=== PATIENT | male | born 1960 | race Caucasian/White ===

== ENCOUNTER 2023-04-08 10:54 | Outpatient (OUT) | payer BC, SELFPAY ==
--- NOTE | 2023-04-08 11:09 | ECG_ITS ---
[facility] Test Date: 2023-04-08 Pat Name: ZOE ANDERSON Department: Room: - Gender: Male [employer] Operator: : 1960 Requested By: MARY BETH COLLINS Order Number: [id number] Reading MD: MISSAEL ELIZALDE Measurements Intervals [place] Rate: 73 P: 83 ND: 104 QRS: 63 QRSD: 92 T: 62 QT: 360 QTc: 398 Interpretive Statements SINUS RHYTHM WITH SHORT ND INTERVAL No previous ECG available for comparison Electronically Signed On 04-09-2023 9:53:27 EDT by MISSAEL ELIZALDE
[2023-04-08 11:52] LABS: Basophils Absolute Auto 0.1 10^3/uL (0.0-0.1); Basophils Percent Auto 1.1 % (0.2-2.0); Eosinophils Absolute Auto 0.1 10^3/uL (0.0-0.7); Eosinophils Percent Auto 1.5 % (0.9-7.0); Hematocrit 53.5 % (42.0-54.0); Hemoglobin 18.5 g/dL (14.0-18.0); Immature Granulocytes Abs Auto 0.02 10^3/uL (0.00-0.03); Immature Granulocytes Pct Auto 0.3 % (0.0-0.5); Lymphocytes Absolute Auto 1.5 10^3/uL (1.2-3.8); Lymphocytes Percent Auto 20.3 % (20.5-60.0); Mean Corpuscular HGB Conc 34.6 g/dL (29.9-35.2); Mean Corpuscular Hemoglobin 34.1 pg (25.9-34.0); Mean Corpuscular Volume 98.5 fL (80.0-94.0); Mean Platelet Volume 10.3 fL (9.5-13.5); Monocytes Absolute Auto 0.6 10^3/uL (0.3-0.8); Monocytes Percent Auto 7.7 % (1.7-12.0); Neutrophils Percent Auto 69.1 % (43.0-75.0); Platelet Count 159 10^3/uL (150-450); Red Blood Count 5.43 10^6/uL (4.70-6.10); Red Cell Distribution Width 13.3 % (11.0-15.0); White Blood Count 7.2 10^3/uL (4.0-11.0)
[2023-04-08 12:32] LABS: Alanine Aminotransferase 60 U/L (16-63); Albumin Level 3.9 g/dL (3.4-5.0); Alkaline Phosphatase 48 U/L (46-116); Anion Gap 12.8; Aspartate Amino Transferase 41 U/L (15-37); BUN Creatinine Ratio 6.5; Bilirubin Total 0.6 mg/dL (0.2-1.0); Calcium 8.7 mg/dL (8.5-10.1); Carbon Dioxide 30.3 mmol/L (21.0-32.0); Chloride 101 mmol/L (98-107); Estimated GFR (African America >60 (>=60); Estimated GFR (Non-African Ame >60 (>=60); Globulin 3.8 g/dL; Glucose 124 mg/dL (74-106); Potassium 5.1 mmol/L (3.5-5.1); Sodium 139 mmol/L (136-145); Total Protein 7.7 g/dL (6.4-8.2)
== END 2023-04-08 10:55 | disposition home or self-care (01) ==
LOC: PST 10:58
PROVIDERS: PCP Family Medicine; Visit Provider Otolaryngology
DX: Z01.812 Encounter for preprocedural laboratory examination (principal); Z01.810 Encounter for preprocedural cardiovascular examination; J38.3 Other diseases of vocal cords
CPT/HCPCS: 36415; 80053; 85025; 93005

== ENCOUNTER 2023-04-12 11:08 | Day surgery (SDC) | payer BC, SELFPAY ==
[2023-04-08 11:23] VITALS: BP 174/86; PULSE 77; RESP 20; TEMP 36.4; O2SAT 95; BMI 27.7
[2023-04-12] VITALS (13 sets, daily range): BP systolic 93–178; BP diastolic 49–104; PULSE 72–83; RESP 14–20; TEMP 36.1; O2SAT 87–96
--- NOTE | 2023-04-12 | OP_ITS ---
OPERATION DATE: ??04/12/2023 PRIMARY CARE PHYSICIAN:? Live Corley M.D. SURGEON:? Bhavya Aguilar M.D. PREOPERATIVE DIAGNOSIS:? Right true vocal cord lesion. POSTOPERATIVE DIAGNOSIS:? Right true vocal cord lesion. PROCEDURE:? Microlaryngoscopy and biopsy of the right true vocal cord. ANESTHESIA:? General endotracheal. COMPLICATIONS:? None. FINDINGS:? 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 INDICATIONS:? This 62-year-old man presented with a 3-4 month history of progressive hoarseness. He has a social history significant for one pack a day smoking and 6-8 beers per day drinking.? On examination in the office, the patient was noted to have a lesion of the right anterior true vocal cord consistent with a squamous cell carcinoma. PROCEDURE:? Patient identified in the holding area and taken back to the OR, where he was placed in the supine position.? After induction of general endotracheal anesthesia, the table was turned, a shoulder roll placed, and a tooth guard put in position.? A Dedo laryngoscope was used to examine the tonsillar fossa, tongue base and supraglottic larynx.? No abnormalities were noted.? The scope unfortunately could not be passed deeply enough to visualize the endolarynx.? Then, using an anterior commissure laryngoscope, the endolarynx was exposed and the scope was suspended.? Using an operating cystoscope with a 30 degrees lens then the lesion was examined, the above findings noted and a photograph taken.? Then using upbiting cup forceps, multiple biopsies of the patient?s mass were obtained to be sent for pathologic analysis.? There was scant, self-limited bleeding.? The patient tolerated the procedure well, and he was awakened and taken to the recovery room in good condition. PAPITO
--- NOTE | 2023-04-12 11:43 | PC.NURSE ---
Moist cough noted
[2023-04-12] MEDS: LACTATED RINGER'S SOLUTION 1,000 ML 50 ML IV (11:52)
[2023-04-12] MEDS: IPRATROPIUM/ALBUTEROL SULFATE 3 ML AMPUL.NEB 1.5 ML IH (11:56)
== END 2023-04-12 14:40 | disposition home or self-care (01) ==
PROVIDERS: PCP Family Medicine; Visit Provider Otolaryngology
PROC: (CPT 31535; principal; 2023-04-12 13:00)
DX: D02.0 Carcinoma in situ of larynx (principal); R49.0 Dysphonia; F17.210 Nicotine dependence, cigarettes, uncomplicated; Z79.899 Other long term (current) drug therapy
CPT/HCPCS: 31535; 36415; 88305; 94640; J2704